=== PATIENT | female | born 1990 | race Caucasian/White ===

== ENCOUNTER 2017-05-08 13:36 | Outpatient (CLI) | payer OTHER ==
[2017-05-08 14:29] VITALS: BP 116/66; PULSE 90; RESP 16; TEMP 98.1
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
== END 2017-05-08 15:15 | disposition home or self-care (01) ==
LOC: FBPOP 13:36
PROVIDERS: ATTEND Obstetrics & Gynecology
DX: O26.93 Pregnancy related conditions, unspecified, third trimester (principal); Z3A.31 31 weeks gestation of pregnancy; O99.333 Smoking (tobacco) complicating pregnancy, third trimester
CPT/HCPCS: 59025; G0463; 99213

== ENCOUNTER 2017-05-15 10:46 | Emergency (ER) | payer OTHER ==
[2017-05-15 11:00] VITALS: BP 111/66; PULSE 110; RESP 18; TEMP 96.1
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
== END 2017-05-15 11:55 | disposition home or self-care (01) ==
LOC: EC 10:46
DX: O9A.213 Injury, poisoning and certain other consequences of external causes complicating pregnancy, third trimester (principal); S39.012A Strain of muscle, fascia and tendon of lower back, initial encounter; O99.333 Smoking (tobacco) complicating pregnancy, third trimester; F17.200 Nicotine dependence, unspecified, uncomplicated; Z79.82 Long term (current) use of aspirin; Z79.899 Other long term (current) drug therapy; Z3A.32 32 weeks gestation of pregnancy; V49.40XA Driver injured in collision with unspecified motor vehicles in traffic accident, initial encounter; Y92.410 Unspecified street and highway as the place of occurrence of the external cause
CPT/HCPCS: 99283

== ENCOUNTER 2017-05-15 11:59 | Outpatient (CLI) | payer OTHER ==
[2017-05-15 13:16] VITALS: BP 112/65; PULSE 98; RESP 16; TEMP 97.7
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
== END 2017-05-15 12:58 | disposition home or self-care (01) ==
LOC: FBPOP 11:59
PROVIDERS: ATTEND Obstetrics & Gynecology
DX: O26.893 Other specified pregnancy related conditions, third trimester (principal); T14.90XA Injury, unspecified, initial encounter; V89.2XXA Person injured in unspecified motor-vehicle accident, traffic, initial encounter; Z3A.32 32 weeks gestation of pregnancy
CPT/HCPCS: 59025; G0463; 99213

== ENCOUNTER → 2017-05-15 | Outpatient (CLI) | payer OTHER ==
--- NOTE | 2017-05-15 14:41 | MR ---
EXAMINATION TYPE: MR brain wo con DATE OF EXAM: 05/15/2017 COMPARISON: NONE HISTORY: Headaches per order, Chiari Malformation and right-sided hearing loss with bilateral extremi ty weakness and numbness per patient. TECHNIQUE: Multiplanar, multisequence imaging of the brain and brainstem is performed without IV cont rast. FINDINGS: Diffusion weighted images demonstrate no evidence of a recent infarct or other diffusion abnormality. There is no extraaxial fluid collection or significant white matter signal abnormality. The ventricu lar system and cisternal spaces are normal in size and appearance. The brain volume is age appropria te. Midline structures demonstrate normal morphology. The craniocervical junction appears within normal limits. Normal vascular flow voids are present. There is 1.1 cm mucous retention cyst or polyp in the medial aspect of the posterior left ethmoid sinus axial image 10. Remainder paranasal sinuses are cl ear. The globes are intact bilaterally. No suspicious fluid signal seen in mastoid air cells bilatera lly. IMPRESSION: No MRI evidence for Chiari type I malformation on current study. No significant acute fin ding is seen to account for patient's symptoms.
== END | disposition home or self-care (01) ==
LOC: RADMRIMAIN 13:13
PROVIDERS: ATTEND Psychiatry & Neurology Neurology
DX: R51 Headache (principal)
CPT/HCPCS: 70551

== ENCOUNTER 2017-05-22 13:56 | Outpatient (CLI) | payer OTHER ==
[2017-05-22 14:35] VITALS: BP 109/67; PULSE 103; RESP 18; TEMP 97.9
--- NOTE | 2017-05-24 09:02 | P.MSEPDOC ---
Presenting Problems - Arrival Data Date of Arrival on Unit: 05/22/17 Time of Arrival on Unit: 14:00 Mode of Transport: Ambulatory - Complaint OB-Reason for Admission/Chief Complaint: NST Medical History - Information : 2 Para: 1 Term: 0 : 1 Abortions: Spontaneous or Elective: 0 Number of Living Children: 1 - Gestational Age Gestational Age by MONI (wks/days): 33 Weeks and 2 Days - History Complications: Smoker Review of Systems - Review of Systems Constitutional: No problems Breast: No problems ENT: No problems Cardiovascular: No problems Respiratory: No problems Gastrointestinal: No problems Genitourinary: No problems Musculoskeletal: No problems Neurological: No problems Skin: No problems Vital Signs - Temperature Temperature: 97.9 F Temperature Source: Temporal Artery Scan - Pulse Right Brachial Pulse Rate: 103 Pulse Assessment Method: Automatic Cuff - Respirations Respiratory Rate: 18 Oxygen Delivery Method: Room Air O2 Sat by Pulse Oximetry: 98 - Blood Pressure Right Arm Blood Pressure: 109/67 Blood Pressure Mean: 81 Blood Pressure Source: Automatic Cuff Medical Screen Scoring (Pre) - Cervical Exam Dilation: Exam Deferred Effacement: Exam Deferred Membranes: Intact - Uterine Contractions Frequency: N/A Duration: N/A Intensity: N/A - Maternal Vital Signs Maternal Temperature: N/A Maternal Blood Pressure: N/A Signs of Preeclampsia: N/A Maternal Respirations: N/A - Maternal Trauma Maternal Trauma: N/A - Assessment Heart Rate - NICHD Category: Category I (Normal) = 0 NST: Reactive Position: N/A Station: N/A - Total Score Total Score (Pre): 0 - Level of Risk Level of Risk: Low (0-5) Physician Notification (Pre) - Physician Notified Physician Notified Date: 05/22/17 Physician Notified Time: 14:45 Physician/Practitioner Notifed:: Dr. Hanley New Order Received: Yes Medical Screen Scoring (Post) - Cervical Exam Dilation: Exam Deferred Effacement: Exam Deferred Membranes: Intact - Uterine Contractions Frequency: N/A Duration: N/A Intensity: N/A - Maternal Vital Signs Maternal Temperature: N/A Signs of Preeclampsia: N/A Maternal Respirations: N/A - Maternal Trauma Maternal Trauma: N/A - Assessment Heart Rate: 130 Heart Rate - NICHD Category: Category I (Normal) = 0 NST: Reactive Position: N/A - Total Score Total Score (Post): 0 - Post Treatment Level of Risk Post Treatment Level of Risk: Low (0-5) Physician Notification (Post) - Physician Notified Physician Notified Date: 05/22/17 Physician Notified Time: 14:56 Physician/Practitioner Notified:: Dr. Hanley Spoke With: Dr. Hanley New Order Received: Yes Disposition - Disposition OB Disposition: Discharge to home Discharge Date: 05/22/17 Discharge Time: 14:56 I agree with the RN Medical Screening Exam: Yes Risk & Benefit of care provided described in d/c instruction: Yes Diagnosis: RELATED CONDITIONS, UNSPECIFIED, THIRD TRIMESTER (nst)
== END 2017-05-22 14:56 | disposition home or self-care (01) ==
LOC: FBPOP 13:56
PROVIDERS: ATTEND Obstetrics & Gynecology
DX: O26.93 Pregnancy related conditions, unspecified, third trimester (principal); Z3A.33 33 weeks gestation of pregnancy
CPT/HCPCS: 59025; G0463; 99213

== ENCOUNTER 2017-05-29 11:54 | Outpatient (CLI) | payer OTHER | END 2017-05-29 12:45 | disposition home or self-care (01) | LOC: FBPOP 11:54 | PROVIDERS: ATTEND Obstetrics & Gynecology | DX: O26.93 Pregnancy related conditions, unspecified, third trimester (principal); Z3A.34 34 weeks gestation of pregnancy; O30.003 Twin pregnancy, unspecified number of placenta and unspecified number of amniotic sacs, third trimester | CPT/HCPCS: 59025; G0463; 99213 ==

== ENCOUNTER 2017-06-06 10:13 | Outpatient (CLI) | payer OTHER ==
--- NOTE | 2017-06-28 17:28 | P.MSEPDOC ---
Presenting Problems - Arrival Data Date of Arrival on Unit: 06/06/17 Time of Arrival on Unit: 10:13 Mode of Transport: Ambulatory - Complaint OB-Reason for Admission/Chief Complaint: NST Comment: twin nst Medical History - Information : 2 Para: 1 Term: 0 : 1 Abortions: Spontaneous or Elective: 1 Number of Living Children: 1 - Gestational Age Gestational Age by MONI (wks/days): 35 Weeks and 3 Days Physician Notification (Pre) - Physician Notified Physician Notified Date: 06/06/17 Physician Notified Time: 10:50 Physician/Practitioner Notifed:: Talon Spoke With: Talon New Order Received: Yes - Notification Comment Comment: Pt in triage for biweekly nst-reactive. Has appt with Dr. Hanley at 1130 today. Spk c\ Dr. Hanley-d/c to appt. Disposition - Disposition OB Disposition: Discharge to home, Written follow up instructions reviewed Discharge Date: 06/06/17 Discharge Time: 10:55 I agree with the RN Medical Screening Exam: Yes Risk & Benefit of care provided described in d/c instruction: Yes Diagnosis: RELATED CONDITIONS, UNSPECIFIED, THIRD TRIMESTER (twins for monitoring)
== END 2017-06-06 10:55 | disposition home or self-care (01) ==
LOC: FBPOP 10:13
PROVIDERS: ATTEND Obstetrics & Gynecology
DX: O26.93 Pregnancy related conditions, unspecified, third trimester (principal); Z3A.35 35 weeks gestation of pregnancy
CPT/HCPCS: 59025

== ENCOUNTER 2017-06-12 15:45 | Outpatient (CLI) | payer OTHER ==
[2017-06-12 16:37] LABS: Basophils % (A) 0 %; Eosinophils # (A) 0.2 k/uL (0-0.7); Eosinophils % (A) 1 %; HGB 11.3 gm/dL (11.4-16.0); Lymphocytes # (A) 2.1 k/uL (1.0-4.8); Lymphocytes % (A) 16 %; MCH 32.4 pg (25.0-35.0); MCHC 33.1 g/dL (31.0-37.0); MCV 97.8 fL (80.0-100.0); Mean Platelet Volume 10.4; Monocytes # (A) 0.7 k/uL (0-1.0); Monocytes % (A) 5 %; Neutrophils # (A) 10.1 k/uL (1.3-7.7); Neutrophils % (A) 76 %; Platelet Count 184 k/uL (150-450); RBC 3.48 m/uL (3.80-5.40); RDW 14.6 % (11.5-15.5); WBC 13.2 k/uL (3.8-10.6)
[2017-06-12 18:02] VITALS: BP 123/65; PULSE 99; RESP 16; TEMP 97.8
--- NOTE | 2017-07-02 07:18 | P.MSEPDOC ---
Presenting Problems - Arrival Data Date of Arrival on Unit: 06/12/17 Time of Arrival on Unit: 15:45 Mode of Transport: Ambulatory - Complaint OB-Reason for Admission/Chief Complaint: NST Comment: routine NST, complains of flu like symptom, leaking of fluids Medical History - Information : 2 Para: 1 Term: 0 : 1 Abortions: Spontaneous or Elective: 1 Number of Living Children: 1 - Gestational Age Gestational Age by MONI (wks/days): 36 Weeks and 2 Days - History Complications: Multiple , Prior Review of Systems - Review of Systems Constitutional: No problems Breast: No problems ENT: No problems Cardiovascular: No problems Respiratory: No problems Gastrointestinal: No problems Genitourinary: No problems Musculoskeletal: No problems Neurological: Dizziness Skin: No problems Vital Signs - Temperature Temperature: 97.8 F Temperature Source: Oral - Pulse Right Pulse Rate: 99 Pulse Assessment Method: Automatic Cuff - Respirations Respiratory Rate: 16 Oxygen Delivery Method: Room Air O2 Sat by Pulse Oximetry: 100 - Blood Pressure Right Arm Blood Pressure: 123/65 Blood Pressure Mean: 84 Blood Pressure Source: Automatic Cuff Medical Screen Scoring (Pre) - Cervical Exam Dilation: Exam Deferred - Uterine Contractions Frequency: N/A Duration: N/A Intensity: N/A - Maternal Vital Signs Maternal Temperature: N/A Maternal Blood Pressure: N/A Signs of Preeclampsia: N/A Maternal Respirations: N/A - Pain Assessment Pain Scale Used: Numeric (1 - 10) Pain Intensity: 0 - Maternal Trauma Maternal Trauma: N/A - Assessment Baseline FHR: 125 Heart Rate - NICHD Category: Category I (Normal) = 0 NST: Reactive - Total Score Total Score (Pre): 0 - Level of Risk Level of Risk: N/A Physician Notification (Pre) - Physician Notified Physician Notified Date: 06/12/17 Physician Notified Time: 17:31 Spoke With: Aden Weaver Order Received: Yes (discharge) - Notification Comment Comment: cbc wnl, flu swab negative, fhts reactive Disposition - Disposition OB Disposition: Triage, Written follow up instructions reviewed Discharge Date: 06/12/17 Discharge Time: 17:35 I agree with the RN Medical Screening Exam: Yes Risk & Benefit of care provided described in d/c instruction: Yes Diagnosis: RELATED CONDITIONS, UNSPECIFIED, THIRD TRIMESTER (twins nst )
== END 2017-06-12 17:35 | disposition home or self-care (01) ==
LOC: FBPOP 15:45
PROVIDERS: ATTEND Obstetrics & Gynecology
DX: O26.93 Pregnancy related conditions, unspecified, third trimester (principal); Z3A.36 36 weeks gestation of pregnancy
CPT/HCPCS: 59025; 84112; 85025; 87502; G0463; 99213

== ENCOUNTER 2017-06-20 14:50 | Outpatient (CLI) | payer OTHER ==
[2017-06-20 15:39] VITALS: BP 125/74; PULSE 127; RESP 16; TEMP 98.5
--- NOTE | 2017-06-20 20:28 | P.MSEPDOC ---
Presenting Problems - Arrival Data Date of Arrival on Unit: 06/20/17 Time of Arrival on Unit: 14:50 Mode of Transport: Ambulatory - Complaint OB-Reason for Admission/Chief Complaint: NST Comment: scheduled twin NSTs Medical History - Information : 2 Para: 1 Term: 0 : 1 Abortions: Spontaneous or Elective: 1 Number of Living Children: 1 - Gestational Age Gestational Age by MONI (wks/days): 37 Weeks and 3 Days - History Complications: Multiple Review of Systems - Review of Systems Constitutional: No problems Breast: No problems ENT: No problems Cardiovascular: No problems Respiratory: No problems Gastrointestinal: No problems Genitourinary: No problems Musculoskeletal: No problems Neurological: No problems Skin: No problems Vital Signs - Temperature Temperature: 98.5 F Temperature Source: Temporal Artery Scan - Pulse Right Brachial Pulse Rate: 127 Pulse Assessment Method: Automatic Cuff - Respirations Respiratory Rate: 16 Oxygen Delivery Method: Room Air - Blood Pressure Right Arm Blood Pressure: 125/74 Blood Pressure Mean: 91 Blood Pressure Source: Automatic Cuff Medical Screen Scoring (Pre) - Cervical Exam Dilation: Exam Deferred Effacement: Exam Deferred Membranes: Intact - Uterine Contractions Frequency: N/A Duration: N/A Intensity: N/A - Maternal Vital Signs Maternal Temperature: N/A Maternal Blood Pressure: N/A Signs of Preeclampsia: N/A Maternal Respirations: N/A - Pain Assessment Pain Scale Used: Numeric (1 - 10) Pain Intensity: 0 - Maternal Trauma Maternal Trauma: N/A - Assessment Heart Rate - NICHD Category: Category I (Normal) = 0 NST: Reactive - Total Score Total Score (Pre): 0 - Level of Risk Level of Risk: Low (0-5) Physician Notification (Pre) - Notification Comment Comment: Scheduled weekly Twin NSTs, both reactive, no contractions, no complaints, Scheduled C/S this Monday Disposition - Disposition OB Disposition: Triage, Discharge to home, Written follow up instructions reviewed Discharge Date: 06/20/17 Discharge Time: 15:23 I agree with the RN Medical Screening Exam: Yes Risk & Benefit of care provided described in d/c instruction: Yes Diagnosis: TWIN , DICHORIONIC/DIAMNIOTIC, THIRD TRIMESTER
== END 2017-06-20 15:23 | disposition home or self-care (01) ==
LOC: FBPOP 14:50
PROVIDERS: ATTEND Obstetrics & Gynecology
DX: O30.043 Twin pregnancy, dichorionic/diamniotic, third trimester (principal); Z3A.37 37 weeks gestation of pregnancy
CPT/HCPCS: 59025

== ENCOUNTER 2017-06-23 06:13 | Inpatient (IN) | payer OTHER ==
[2017-06-21 13:16] VITALS: BMI 29.7
[2017-06-23] MEDS ORDERED: ceFAZolin IN SWFI 2 GM/20 ML SYRINGE IVP ONE (06:31)
[2017-06-23] MEDS ORDERED: CITRIC ACID-SODIUM CITRATE 15 ML CUP PO ONE (06:31)
[2017-06-23] MEDS ORDERED: LACTATED RINGERS 1,000 ML IV ONE (06:31)
[2017-06-23 06:43] LABS: Basophils % (A) 0 %; Eosinophils # (A) 0.1 k/uL (0-0.7); Eosinophils % (A) 1 %; HGB 11.9 gm/dL (11.4-16.0); Lymphocytes # (A) 1.9 k/uL (1.0-4.8); Lymphocytes % (A) 19 %; MCH 32.9 pg (25.0-35.0); MCHC 34.9 g/dL (31.0-37.0); MCV 94.3 fL (80.0-100.0); Mean Platelet Volume 10.2; Monocytes # (A) 0.7 k/uL (0-1.0); Monocytes % (A) 7 %; Neutrophils # (A) 7.4 k/uL (1.3-7.7); Neutrophils % (A) 71 %; Platelet Count 183 k/uL (150-450); RDW 14.8 % (11.5-15.5); WBC 10.5 k/uL (3.8-10.6)
[2017-06-23] MEDS ORDERED: LACTATED RINGERS 1,000 ML IV SCH (06:45)
[2017-06-23] MEDS ORDERED: fentaNYL (PF) 50 MCG/ML 2 ML AMP ONE (08:01)
[2017-06-23] MEDS ORDERED: ROCURONIUM BROMIDE 10 MG/ML 10 ML VIAL IV ONE (08:01)
[2017-06-23] MEDS ORDERED: PROPOFOL 10 MG/ML 20 ML VIAL IV ONE (08:01)
[2017-06-23] MEDS ORDERED: HYDROmorphone (PF) 1 MG/ML ONE (08:01)
[2017-06-23] MEDS ORDERED: LIDOCAINE 1% INJ 10MG/ML (20 ML MDV) ONE (08:01)
[2017-06-23] MEDS ORDERED: KETOROLAC 30 MG/ML 1 ML VIAL ONE (08:01)
[2017-06-23] MEDS ORDERED: OXYTOCIN 10 UNIT/ML 1 ML VIAL ONE (08:01)
[2017-06-23] MEDS ORDERED: Acetaminophen-Codeine 300-30mg TAB PO PRN ×2 (08:49)
[2017-06-23] MEDS ORDERED: diphenhydrAMINE 50 MG/ML 1 ML VIAL IVP PRN (08:49)
[2017-06-23] MEDS ORDERED: NALOXONE 0.4 MG/ML 1 ML VIAL IV PRN ×2 (08:49→09:24)
[2017-06-23] MEDS ORDERED: ONDANSETRON 4 MG/2 ML VIAL IVP PRN (08:49)
[2017-06-23] MEDS ORDERED: ZOLPIDEM 5 MG TAB PO PRN (08:49)
[2017-06-23] MEDS ORDERED: diphenhydrAMINE 50 MG CAP PO PRN (08:49)
[2017-06-23] MEDS ORDERED: METOCLOPRAMIDE 5 MG/ML 2 ML VIAL IVP PRN (08:49)
[2017-06-23] MEDS ORDERED: diphenhydrAMINE 25 MG CAP PO PRN (08:49)
[2017-06-23] MEDS ORDERED: ACETAMINOPHEN TAB 325 MG TAB PO PRN (08:49)
--- NOTE | 2017-06-23 08:53 | P.HPOB ---
History of Present Illness H&P Date: 06/23/17 Chief Complaint: Intrauterine at term: Twin gestation Ester is a 26-year-old at 37 and 6 days' gestation with twins. Patient does have a significant medical history of Arnold-Chiari malformation and required general anesthetic. Her course was obviously compensated by twin gestation but by and large with coordination with maternal- medicine she had no significant problems during the . She's been followed very closely and has had weekly visits with nonstress tests since approximately 32 weeks. She is scheduled for a primary low transverse section with bilateral partial salpingectomy. Risks/benefits/alternatives to this procedure were discussed with the patient in detail and all questions were answered for her prior to proceeding to the operating room. On physical exam vital signs are stable and afebrile. Heart regular, lungs clear, extremities are without pain. Osteopathic exam is unremarkable. Abdomen soft and nontender with positive or gravid uterus noted.. heart tones are both reactive in the 140s. Assessment intrauterine at term with Arnold-Chiari malformation , twin gestation. Plan primary low transverse section with bilateral partial salpingectomy. Past Medical History Past Medical History: Neurologic Disorder Additional Past Medical History / Comment(s): chiari malfornation History of Any Multi-Drug Resistant Organisms: None Reported Past Surgical History: No Surgical Hx Reported Past Anesthesia/Blood Transfusion Reactions: No Reported Reaction Additional Past Anesthesia/Blood Transfusion Reaction / Comment(s): NO PRIOR SX HX Past Psychological History: No Psychological Hx Reported Smoking Status: Current every day smoker Past Alcohol Use History: None Reported Additional Past Alcohol Use History / Comment(s): SMOKES 2 CIGARETTES-STARTED SMOKING AGE 12 Past Drug Use History: None Reported - Past Family History Mother Family Medical History: No Reported History Medications and Allergies Home Medications Medication Instructions Recorded Confirmed Type Aspirin 81 mg PO HS 05/08/17 06/23/17 History Folic Acid 1 mg PO HS 05/08/17 06/23/17 History Pnv,Calcium 72/Iron/Folic Acid 1 tab PO HS 05/08/17 06/23/17 History [ Plus Tablet] diphenhydrAMINE HCL [Benadryl] 25 mg PO HS 05/08/17 06/23/17 History Acetaminophen Tab [Tylenol Tab] 1,000 mg PO Q6HR PRN 06/21/17 06/23/17 History Allergies Allergy/AdvReac Type Severity Reaction Status Date / Time No Known Allergies Allergy Verified 06/23/17 06:29 Exam Osteopathic Statement: *. No significant issues noted on an osteopathic structural exam other than those noted in the History and Physical/Consult. - Vital Signs Vital signs: Vital Signs Temp Pulse Resp BP Pulse Ox 06/23/17 06:38 97.7 F 105 H 18 118/75 100 Intake and Output 06/22/17 06/23/17 06/23/17 22:59 06:59 14:59 Other: Weight 86.183 kg Results Result Diagrams: 06/23/17 06:35 Abnormal Lab Results - Last 24 Hours (Table) 06/23/17 Range/Units 06:35 RBC 3.60 L (3.80-5.40) m/uL
--- NOTE | 2017-06-23 08:57 | P.OP ---
Date of Procedure: 06/23/17 Preoperative Diagnosis: Intrauterine at term: Twins: Arnold-Chiari malformation Postoperative Diagnosis: same Procedure(s) Performed: Primary low-transverse section with bilateral partial salpingectomy Anesthesia: SENTHIL Surgeon: Eduardo Hanley Staff Weapons Officer #1: Francia Samaniego Estimated Blood Loss (ml): 800 IV fluids (ml): 1,000 Urine output (ml): 1,000 Pathology: other Condition: stable Disposition: floor Operative Findings: Twin gestation delivered without difficulty baby girl a scores of 8 and 9 at one and 5 minutes Kianna and weight of 5 lbs. 13 oz. born from breech presentation and baby boy be also 8 and 9 scores and a weight of 5 lbs. 8 oz. and was also delivered from breech presentation. Description of Procedure: Patient was taken to the operating suite where a general anesthetic was found to be adequate. She was prepped and draped in the normal sterile fashion and placed in the dorsal supine position with leftward tilt. Initially a Pfannenstiel skin incision was made and this incision was then carried through to the underlying layer of the fascia with a second knife. Fascia was then nicked in the midline and this opening was extended laterally with Irizarry scissors. Superior and inferior aspect of this incision were then grasped tented up and bluntly and sharply dissected off the rectus muscles. Rectus muscles were then divided in the midline and blunt dissection through the peritoneum was made. This opening was then extended superiorly and inferiorly with good visualization of both bowel bladder. Bladder blade was then placed and the bladder flap was identified and entered with Metzenbaum scissors and extended across the face the uterus. Bladder was then dissected out of the operative field. Knife was then used to incise the uterus and it was fully opened with hemostat. This incision was then extended bluntly with clear fluid noted. Robotic was then brought into the incision and baby was easily delivered. Mouth nares were then bulb suctioned by the nursery personnel and the umbilical cord was clamped cut usual fashion. Once this was completed some fundal was prepped pressure was applied to bring the baby boy be down into the incision artificial rupture membranes was performed and baby boy bupivacaine was delivered from breech presentation without difficulty. Same procedure was followed was mouth and nares being bulb suctioned and the umbilical cord was clamped cut. Placenta was then delivered intact and Pitocin was added to the IV. Uterus was then exteriorized cleared of clots and debris and closed in 1 layer with 0 Vicryl suture. 3-0 Vicryl was then used to reapproximate the bladder flap. Attention was then turned to the fallopian tubes where hemostat was placed on the right and left tube 3 cm from uterine cornu with a window created in the mesosalpinx. 2 proximal and 2 distal 2-0 silk sutures were placed and intervening segment was excised. On the left tube there is continued bleeding off of the fallopian tube therefore the fimbriated end was clasped with a hemostat excised and using 0 Vicryl suture the bleeding was controlled. Once this was accomplished blood and debris was suctioned from the posterior cul-de-sac and the uterus was reinserted into the abdomen. Peritoneal layer was then closed with 0 Vicryl suture fascial layer was closed with 0 Vicryl suture one layer of 3-0 Vicryl was placed in the deep subcuticular tissues to reapproximate the skin and close the space and the skin was closed with 3-0 Vicryl. Patient tolerated surgery very well sponge, lap, needle counts were all correct 2. Patient was then taken to the recovery room in stable and satisfactory condition.
[2017-06-23] MEDS: HYDROmorphone PCA 5 MG/25 ML SYRINGE IV PRN ×2 (10:01→19:42)
[2017-06-23] MEDS: diphenhydrAMINE 50 MG/ML 1 ML VIAL IVP PRN ×2 (11:55→19:05)
[2017-06-23] MEDS: LACTATED RINGERS 1,000 ML IV SCH ×2 (15:16→22:24)
[2017-06-23] MEDS: SENNOSIDES-DOCUSATE SODIUM 1 EACH TAB PO SCH (19:43)
[2017-06-23] MEDS ORDERED: METHYLERGONOVINE 0.2 MG/ML 1 ML AMP IM ONE (21:36)
[2017-06-23] MEDS ORDERED: ACETAMINOPHEN IV (For NPO) 1,000 MG in EMPTY BAG 1 BAG IVPB STA (22:44)
[2017-06-23 23:02] LABS: Basophils # (A) 0.1 k/uL (0-0.2); Basophils % (A) 0 %; Eosinophils # (A) 0.1 k/uL (0-0.7); Eosinophils % (A) 0 %; Lymphocytes # (A) 2.7 k/uL (1.0-4.8); Lymphocytes % (A) 11 %; MCH 31.9 pg (25.0-35.0); MCV 96.8 fL (80.0-100.0); Mean Platelet Volume 10.6; Monocytes # (A) 1.4 k/uL (0-1.0); Monocytes % (A) 6 %; Neutrophils # (A) 20.1 k/uL (1.3-7.7); Neutrophils % (A) 81 %; Platelet Count 101 k/uL (150-450); Poikilocytosis Slight; RBC 1.64 m/uL (3.80-5.40); RDW 15.1 % (11.5-15.5); WBC 24.8 k/uL (3.8-10.6)
[2017-06-23 23:09] LABS: HCT 15.9 % (34.0-46.0); HGB 5.2 gm/dL (11.4-16.0)
[2017-06-23] MEDS: SODIUM CHLORIDE 0.9% 1,000 ML IV SCH (23:59)
[2017-06-24] MEDS: SIMETHICONE 80 MG CHEWABLE PO PRN ×3 (02:51→17:37)
[2017-06-24 05:22] LABS: Anisocytosis Slight; Basophils # (A) 0.1 k/uL (0-0.2); Basophils % (A) 0 %; Eosinophils # (A) 0.1 k/uL (0-0.7); Eosinophils % (A) 1 %; HCT 20.3 % (34.0-46.0); Lymphocytes # (A) 2.9 k/uL (1.0-4.8); Lymphocytes % (A) 13 %; MCHC 33.9 g/dL (31.0-37.0); Mean Platelet Volume 10.2; Monocytes # (A) 1.1 k/uL (0-1.0); Monocytes % (A) 5 %; Neutrophils % (A) 79 %; Platelet Count 95 k/uL (150-450); Poikilocytosis Slight; RBC 2.29 m/uL (3.80-5.40); RDW 17.8 % (11.5-15.5); WBC 21.5 k/uL (3.8-10.6)
[2017-06-24 05:28] LABS: HGB 6.9 gm/dL (11.4-16.0); MCV 88.5 fL (80.0-100.0)
[2017-06-24] MEDS: KETOROLAC 30 MG/ML 1 ML VIAL IVP PRN ×3 (07:33→20:11)
[2017-06-24] MEDS: LACTATED RINGERS 1,000 ML IV SCH (09:19)
[2017-06-24] MEDS: SENNOSIDES-DOCUSATE SODIUM 1 EACH TAB PO SCH ×2 (10:32→20:13)
--- NOTE | 2017-06-24 10:52 | P.PNOBGPC ---
Subjective - Subjective Principal diagnosis: Status post primary low transverse POD #1 Interval history: Patient seen and examined. I was called in to see the patient last evening due to increased vaginal bleeding. I expressed several clots from her uterus and placed a Vega catheter which drained 400 mL of clear urine. Her vitals remained stable throughout the process but she did lose approximately 1500 mL of blood. Hemoglobin preoperatively was 11.9 and after expression of her uterus was 5.2. I transfused 2 units of packed red blood cells and her hemoglobin most recently of 6.9, which was right after the blood transfusion. I am planning to repeat this hemoglobin 6 hours after the end of transfusion. Today the patient's pain is well-controlled with IV pain medication but she is complaining of itchiness. I will change this to by mouth pain medication since she is tolerating clear liquids. She has very good urine output and the urine is clear yellow. Her vital signs remained stable, she is not hypotensive or tachycardic. She has no dizziness upon standing up or standing, no headache, no chest pain or shortness of breath, no nausea, no vomiting, no calf pain. I will discontinue the Vega catheter if she was able to stand at the bedside and get to the bathroom without becoming dizzy as well as if the Hemoglobin remains stable. Patient reports: Reports appetite normal, Reports pain well controlled [place]: doing well Objective - Vital Signs Latest vital signs: Vital Signs Temp Pulse Pulse Resp BP BP Pulse Ox 06/24/17 09:24 98 06/24/17 09:00 99.2 F 98 18 104/56 98 06/24/17 06:42 94 16 95/57 94 L 06/24/17 04:00 98.4 F 79 16 102/68 98 06/24/17 03:16 98.3 F 77 16 100/59 99 06/24/17 02:07 98.3 F 74 16 94/58 98 06/24/17 01:37 98.4 F 78 14 99/61 97 06/24/17 01:27 98.3 F 73 16 99/57 97 06/24/17 01:05 98.6 F 77 14 94/62 99 06/24/17 00:38 98.6 F 86 16 99/60 98 06/24/17 00:34 98.6 F 84 16 101/54 100 06/24/17 00:08 98.6 F 81 16 103/52 96 06/24/17 00:00 98.7 F 77 14 95/49 99 06/23/17 23:58 98.7 F 98 14 95/49 99 06/23/17 23:47 98.5 F 93 16 100/55 100 06/23/17 22:55 93 14 82/56 96 06/23/17 22:25 92 16 96/57 100 06/23/17 20:00 98.5 F 75 14 100/54 98 06/23/17 16:00 97.6 F 88 18 108/55 97 06/23/17 11:45 97.2 F L 75 18 104/62 96 06/23/17 10:57 100 18 96/59 95 Intake and Output 06/23/17 06/24/17 06/24/17 22:59 06:59 14:59 Intake Total 1020 Output Total 1200 1100 700 Balance -1200 -80 -700 Intake: Intake, IV Titration 90 Amount Lactated Ringers 1,000 ml 40 @ 125 mls/hr IV .Q8H IAIN Rx#:[id number] Sodium Chloride 0.9% 1, 50 000 ml @ 100 mls/hr IV . Q10H IAIN Rx#:[id number] Blood Product 930 Rc As-1 Unit 310 [id number] Rc As-1 Unit 310 [id number] Output: Urine 1200 1100 700 Uretheral (Vega) 400 - Exam Lungs: bilateral: normal Chest: Normal S1, Normal S2 Extremities: Present: normal Abdomen: Present: normal appearance, soft. Absent: distention, tenderness Incision: Present: normal, dry, intact Uterus: Present: normal, firm - Labs Labs: Abnormal Lab Results - Last 24 Hours (Table) 06/23/17 06/23/17 06/24/17 Range/Units 06:35 22:37 04:51 WBC 24.8 H 21.5 H (3.8-10.6) k/uL RBC 1.64 L 2.29 L (3.80-5.40) m/uL Hgb 5.2 L* D 6.9 L* D (11.4-16.0) gm/dL Hct 15.9 L* 20.3 L (34.0-46.0) % RDW 17.8 H (11.5-15.5) % Plt Count 101 L 95 L (150-450) k/uL Neutrophils # 20.1 H 17.0 H (1.3-7.7) k/uL Monocytes # 1.4 H 1.1 H (0-1.0) k/uL Crossmatch See Detail Assessment and Plan (1) Status post primary low transverse section Current Visit: Yes Status: Acute Code(s): Z98.891 - HISTORY OF UTERINE SCAR FROM PREVIOUS SURGERY SNOMED Code(s): 780981238 (2) Anemia due to blood loss, acute Current Visit: Yes Status: Acute Code(s): D62 - ACUTE POSTHEMORRHAGIC ANEMIA SNOMED Code(s): 515186205 Plan: 1. Recheck CBC 2. By mouth pain medication 3. Increase ambulation 4. If ambulation as tolerated with discontinue Vega catheter
[2017-06-24 10:53] LABS: Anisocytosis Slight; Basophils % (A) 0 %; Eosinophils # (A) 0.1 k/uL (0-0.7); Eosinophils % (A) 1 %; Lymphocytes # (A) 2.6 k/uL (1.0-4.8); Lymphocytes % (A) 17 %; MCH 29.7 pg (25.0-35.0); MCHC 33.6 g/dL (31.0-37.0); MCV 88.3 fL (80.0-100.0); Mean Platelet Volume 9.8; Monocytes # (A) 0.9 k/uL (0-1.0); Monocytes % (A) 6 %; Neutrophils # (A) 11.6 k/uL (1.3-7.7); Neutrophils % (A) 75 %; Platelet Count 95 k/uL (150-450); Poikilocytosis Slight; RBC 2.03 m/uL (3.80-5.40); RDW 18.7 % (11.5-15.5); WBC 15.5 k/uL (3.8-10.6)
[2017-06-24 10:58] LABS: HCT 17.9 % (34.0-46.0)
[2017-06-24] MEDS: HYDROcodone/APAP 7.5-325MG 1 EACH TAB PO PRN ×2 (11:01→17:36)
[2017-06-24 17:31] LABS: Anisocytosis Slight; HCT 22.4 % (34.0-46.0); HGB 7.4 gm/dL (11.4-16.0); MCH 29.6 pg (25.0-35.0); MCV 89.7 fL (80.0-100.0); Mean Platelet Volume 10.6; Platelet Count 108 k/uL (150-450); RDW 18.1 % (11.5-15.5); WBC 16.3 k/uL (3.8-10.6)
[2017-06-25] MEDS: HYDROcodone/APAP 7.5-325MG 1 EACH TAB PO PRN ×3 (00:49→19:35)
[2017-06-25] MEDS: KETOROLAC 30 MG/ML 1 ML VIAL IVP PRN ×2 (04:52→14:34)
[2017-06-25] MEDS: SENNOSIDES-DOCUSATE SODIUM 1 EACH TAB PO SCH ×2 (08:00→21:37)
--- NOTE | 2017-06-25 10:57 | P.PNOBGPC ---
Subjective - Subjective Principal diagnosis: S/P Primary low transverse POD #2 Interval history: Pt seen and examined. Feeling much better today. S/P 3 units PRBCs. hgb is 7.4. tolerating reg diet. +BM. pain controlled with PO meds. Denies N/V, F/C, CP, SOB calf pain Patient reports: Reports appetite normal, Reports voiding normally, Reports pain well controlled, Reports ambulating normally : doing well Objective - Vital Signs Latest vital signs: Vital Signs Temp Pulse Pulse Resp BP BP Pulse Ox 06/25/17 00:00 99.0 F 78 16 103/70 98 06/24/17 20:00 99.9 F H 06/24/17 18:47 100.4 F H 06/24/17 16:00 98.4 F 98 18 96/57 98 06/24/17 12:56 98.3 F 84 18 91/54 06/24/17 12:38 98.1 F 83 18 102/55 06/24/17 12:19 98.3 F 80 18 97/48 06/24/17 11:56 98.1 F 90 18 91/44 06/24/17 11:42 98.7 F 86 18 98/53 Intake and Output 06/24/17 06/25/17 06/25/17 21:59 06:59 14:59 Output Total Balance Output: Urine Other: # Voids - Exam Lungs: bilateral: normal Chest: Normal S1, Normal S2 Extremities: Present: normal Abdomen: Present: normal appearance, soft. Absent: distention, tenderness Incision: Present: normal, dry, intact Uterus: Present: normal, firm - Labs Labs: Abnormal Lab Results - Last 24 Hours (Table) 06/23/17 06/24/17 06/24/17 Range/Units 06:35 10:43 16:55 WBC 15.5 H 16.3 H (3.8-10.6) k/uL RBC 2.03 L 2.50 L (3.80-5.40) m/uL Hgb 6.0 L* 7.4 L (11.4-16.0) gm/dL Hct 17.9 L* 22.4 L (34.0-46.0) % RDW 18.7 H 18.1 H (11.5-15.5) % Plt Count 95 L 108 L (150-450) k/uL Neutrophils # 11.6 H (1.3-7.7) k/uL Crossmatch See Detail Assessment and Plan (1) Status post primary low transverse section Current Visit: Yes Status: Acute Code(s): Z98.891 - HISTORY OF UTERINE SCAR FROM PREVIOUS SURGERY SNOMED Code(s): 580064956 (2) Anemia due to blood loss, acute Narrative/Plan: s/p 3 units PRBCs Current Visit: Yes Status: Acute Code(s): D62 - ACUTE POSTHEMORRHAGIC ANEMIA SNOMED Code(s): 128969352 Plan: 1. cont po care 2. increase ambulation
[2017-06-25] MEDS: LACTATED RINGERS 1,000 ML IV SCH ×2 (21:39→21:40)
[2017-06-25] MEDS: SODIUM CHLORIDE 0.9% 1,000 ML IV SCH (21:39)
[2017-06-25] MEDS: IBUPROFEN 600 MG TAB PO PRN (22:13)
[2017-06-26 00:50] VITALS: RESP 16
[2017-06-26] MEDS: HYDROcodone/APAP 7.5-325MG 1 EACH TAB PO PRN (02:36)
[2017-06-26] MEDS: IBUPROFEN 600 MG TAB PO PRN (08:02)
[2017-06-26] MEDS ORDERED: HYDROcodone/APAP 5-325MG 1 EACH TAB PO PRN (09:04)
--- NOTE | 2017-06-26 09:06 | P.PNOBGPC ---
Subjective - Subjective Principal diagnosis: Postop day 3 Interval history: Ester is seen and evaluated postop day 3, her main complaint is pain. She is seen and evaluated. She complains that her pain is getting much worse since they've stop the IV pain medication. And that the [place] 7.5 are not controlling her pain well enough. She is also not taking them every 68 hours. We'll change the prescription to [place] 08/17/2024's that she can have 2 every 4 hours and see if we can do a better job getting her pain under control. Otherwise on physical exam her vital signs are stable and she is currently afebrile. Her heart is regular and her lungs are clear. Abdomen is soft with uterus firm at the umbilicus. Her incision is clean dry and intact with some ecchymosis going down into the mons area. No active bleeding is noted. Her extremities do have 2+ pitting edema but this is not necessarily unremarkable or surprising in somebody that is had a section particular since she was still receiving IV fluids due to transfusion. Assessment postop day 3. Plan continue current care, she is requesting discharge home but until her pain is better controlled I have advised her that she should continue stay in the hospital. We'll plan to change the medications and reevaluate her UAs her later in the afternoon and if her pain is better controlled we'll plan discharged home. Objective - Vital Signs Latest vital signs: Vital Signs Temp Pulse Resp BP Pulse Ox 06/26/17 00:00 98.3 F 99 16 113/73 98 06/25/17 16:00 98.3 F 109 H 18 112/67 Intake and Output 06/25/17 06/26/17 06/26/17 22:59 06:59 14:59 Other: # Voids 2
[2017-06-26] MEDS: SIMETHICONE 80 MG CHEWABLE PO PRN (10:30)
[2017-06-26] MEDS: SENNOSIDES-DOCUSATE SODIUM 1 EACH TAB PO SCH (10:30)
[2017-06-26] MEDS: HYDROcodone/APAP 5-325MG 1 EACH TAB PO PRN ×2 (10:31→15:35)
[2017-06-26 10:52] VITALS: BP 113/62; PULSE 84; TEMP 97.8
[2017-06-26 13:18] LABS: Appearance,Urine Clear (Clear); Bacteria,Urine Rare /hpf; Bilirubin,Urine Negative (Negative); Blood,Urine Large (Negative); Budding Yeast,Urine Occasional /hpf; Color,Urine Yellow; Glucose,Urine (UA) Negative (Negative); Ketones,Urine Negative (Negative); Leukocyte Esterase,Urine Moderate (Negative); Nitrite,Urine Negative (Negative); PH, Urine 6.5 (5.0-8.0); Protein,Urine Trace (Negative); RBC,Urine 70 /hpf (0-5); Specific Gravity,Urine 1.004 (1.001-1.035); Squamous Epithelial Cell,Urine 2 /hpf (0-4); Urobilinogen,Urine <2.0 mg/dL (<2.0); WBC,Urine 29 /hpf (0-5)
--- NOTE | 2017-06-26 13:36 | P.DS ---
Providers Date of admission: 06/23/17 06:13 Expected date of discharge: 06/26/17 Attending physician: Eduardo Hanley Primary care physician: [facility] Course: Ester is doing very well postop day 3. She is ambulating, voiding and she is tolerating her diet. She voices no points other than incisional pain. She is noted who have had a large episode of hemorrhage. Ultimately requiring 3 units of blood transfusion the Dr. Samaniego manage. Most likely this occurred due to uterine atony. Since uterus became firm following manual expression of clots she's had no other significant bleeding and has maintained stability since then. Even during her significant anemia anemic episode her blood pressure and other vital signs remained stable. She does report however during the process she did lose her hearing and had difficulty with vision as well. At this time she has no residual side effects. On physical exam her vital signs are currently stable and afebrile. Her heart is regular, lungs are clear, extremities are without pain but do have the plus pitting edema. She is encouraged to drink more liquids and trying get her feet up above her heart as much as possible while at home. I did offer to allow her to stay another day for further evaluation but she is stating that she needs to go home and he with her other children and she is not willing to stay. Prescriptions for pain medication including [place] and Motrin are provided as has a prescription for iron been provided. Her abdomen is soft her uterus is firm below the umbilicus and her incision is otherwise clean dry and intact. Assessment postop day 3. Plan discharged home follow up with me in 1 week. Discharge instructions thoroughly reviewed and all questions are answered for both she and her . Patient Condition at Discharge: Good Plan - Discharge Summary Discharge Rx Participant: Yes New Discharge Prescriptions: New HYDROcodone/APAP 5-325MG [[place] 5-325] 1 tab PO Q4HR PRN #30 tab PRN Reason: Pain Ibuprofen [Motrin] 600 mg PO Q6HR PRN #30 tab PRN Reason: Pain Ferrous Sulfate [Feosol] 325 mg PO DAILY #90 tab No Action Aspirin 81 mg PO HS Pnv,Calcium 72/Iron/Folic Acid [ Plus Tablet] 1 tab PO HS Folic Acid 1 mg PO HS diphenhydrAMINE HCL [Benadryl] 25 mg PO HS Acetaminophen Tab [Tylenol Tab] 1,000 mg PO Q6HR PRN PRN Reason: Pain Discharge Medication List Aspirin 81 mg PO HS 05/08/17 [History] Folic Acid 1 mg PO HS 05/08/17 [History] Pnv,Calcium 72/Iron/Folic Acid [ Plus Tablet] 1 tab PO HS 05/08/17 [ History] diphenhydrAMINE HCL [Benadryl] 25 mg PO HS 05/08/17 [History] Acetaminophen Tab [Tylenol Tab] 1,000 mg PO Q6HR PRN 06/21/17 [History] Ferrous Sulfate [Feosol] 325 mg PO DAILY #90 tab 06/26/17 [Rx] HYDROcodone/APAP 5-325MG [[place] 5-325] 1 tab PO Q4HR PRN #30 tab 06/26/17 [Rx] Ibuprofen [Motrin] 600 mg PO Q6HR PRN #30 tab 06/26/17 [Rx] Follow up Appointment(s)/Referral(s): Eduardo Hanley DO [Doctor of Osteopathic Medicine] - 1 Week Activity/Diet/Wound Care/Special Instructions: No heavy lifting, limit stairs and driving and pelvic rest. If any high temperatures, heavy bleeding, or severe pain call my office
== END 2017-06-26 16:30 | disposition home or self-care (01) | DRG 765 ==
LOC: 4FBP 06:13
PROVIDERS: ADMIT Obstetrics & Gynecology; ATTEND Obstetrics & Gynecology
PROC: 10D00Z1 Extraction of Products of Conception, Low, Open Approach (ICD-10-PCS; principal; 2017-06-23 08:00)
PROC: 30233N1 Transfusion of Nonautologous Red Blood Cells into Peripheral Vein, Percutaneous Approach (ICD-10-PCS; principal; 2017-06-23 08:00)
PROC: 0UB70ZZ Excision of Bilateral Fallopian Tubes, Open Approach (ICD-10-PCS; principal; 2017-06-23 08:00)
DX: O32.1XX1 Maternal care for breech presentation, fetus 1 (principal); D62 Acute posthemorrhagic anemia; Z37.2 Twins, both liveborn; O72.1 Other immediate postpartum hemorrhage; O99.02 Anemia complicating childbirth; O30.043 Twin pregnancy, dichorionic/diamniotic, third trimester; F17.200 Nicotine dependence, unspecified, uncomplicated; O99.334 Smoking (tobacco) complicating childbirth; Z3A.37 37 weeks gestation of pregnancy; Z79.82 Long term (current) use of aspirin; Q07.00 Arnold-Chiari syndrome without spina bifida or hydrocephalus
CPT/HCPCS: 81001; 85025; 85027; 86850; 86900; 86901; 86920; 88302; 88307

== ENCOUNTER → 2024-04-23 | Outpatient (CLI) | payer OTHER ==
[2024-04-24 02:22] LABS: Basophils # (A) 0.06 X 10*3/uL (0.00-0.10); Basophils % (A) 0.8 %; Eosinophils # (A) 0.14 X 10*3/uL (0.04-0.35); Eosinophils % (A) 1.8 %; HCT 43.5 % (37.2-46.3); HGB 14.7 g/dL (12.0-15.0); Lymphocytes # (A) 2.29 X 10*3/uL (0.90-5.00); Lymphocytes % (A) 28.8 %; MCH 31.3 pg (27.0-32.0); MCHC 33.8 g/dL (32.0-37.0); MCV 92.8 FL (80.0-97.0); Mean Platelet Volume 11.4 FL (9.5-12.2); Monocytes # (A) 0.57 X 10*3/uL (0.20-1.00); Monocytes % (A) 7.2 %; NRBC Per 100 WBC 0 X 10*3/uL (0.00-0.01); Neutrophils # (A) 4.88 X 10*3/uL (1.80-7.70); Neutrophils % (A) 61.1 %; Platelet Count 238 X 10*3/uL (140-440); RBC 4.69 X 10*6/uL (4.10-5.20); RDW 12.3 % (11.5-14.5); WBC 7.96 X 10*3/uL (4.50-10.00)
[2024-04-24 03:58] LABS: Hepatitis A Antibody IgM Nonreactive (Nonreactive); Hepatitis B Core IgM Nonreactive (Nonreactive); Hepatitis B Surface Antigen Nonreactive (Nonreactive); Hepatitis C IgG Antibody Nonreactive (Nonreactive)
[2024-04-24 04:35] LABS: ALT 27 U/L (8-44); AST 25 U/L (13-35); Albumin 4.9 g/dL (3.8-4.9); Albumin/Globulin Ratio 1.81 Ratio (1.60-3.17); Alkaline Phosphatase 108 U/L (41-126); BUN/Creat Ratio 11.71 Ratio (12.00-20.00); Blood Urea Nitrogen 8.2 mg/dL (9.0-27.0); Chloride 101 mmol/L (96-109); Globulin 2.7 g/dL (1.6-3.3); Glucose 99 mg/dL (70-110); Potassium 3.4 mmol/L (3.5-5.5); Sodium 138 mmol/L (135-145); Total Bilirubin 0.6 mg/dL (0.3-1.2); Total Protein 7.6 g/dL (6.2-8.2)
== END | disposition home or self-care (01) ==
LOC: LABWHC1 16:23
PROVIDERS: ATTEND Internal Medicine Gastroenterology
DX: R74.01 Elevation of levels of liver transaminase levels (principal)
CPT/HCPCS: 36415; 80053; 80074; 81596; 85025